=== PATIENT | male | born 1975 | race Caucasian/White ===

== ENCOUNTER 2017-01-12 23:47 | Emergency (ER) | payer SELFPAY ==
[~2017-01-12] VITALS: Ht 172.7 cm; Wt 69.6 kg
[~2017-01-12 23:47] MED LIST: ACULAR 0.5100 DROP/5 BOTH EYES; HYDROCODON-ACE1 EAC7 PO; ILOTYCIN1 GM BOTH EYES
[2017-01-13] MEDS ORDERED: ERYTHROMYCIN O3.5 GM BOTH EYES (00:25)
[2017-01-13] MEDS ORDERED: PERCOCET 5/31 TABLET PO (00:25)
[2017-01-13] MEDS ORDERED: TOBREX5 ML BOTH EYES (00:25)
[2017-01-13 00:58] VITALS: BP 150/92
== END 2017-01-13 01:00 | disposition home or self-care (01) ==
LOC: EME 23:47
DX: H16.133 Photokeratitis, bilateral (principal); W89.0XXA Exposure to welding light (arc), initial encounter; F17.200 Nicotine dependence, unspecified, uncomplicated
CPT/HCPCS: 99281; 99284